=== PATIENT | male | born 1960 | race African-American/Black ===

== ENCOUNTER 2016-12-18 09:40 | Observation (INO) | payer MEDICARE, OTHER ==
[2016-12-18] VITALS (9 sets, daily range): BP systolic 145–189; BP diastolic 77–119; PULSE 75–90; RESP 16–17; TEMP 98; O2SAT 93–97
[~2016-12-18] VITALS: Ht 182.9 cm; Wt 120.0 kg
[~2016-12-18 09:40] MED LIST: KETO10 PO
[2016-12-18] MEDS ORDERED: HYDR-3583 PO (11:09)
[2016-12-18] MEDS ORDERED: IBUP800T23 PO (11:09)
--- NOTE | 2016-12-18 11:12 | PD ---
HPI Chief Complaint: Chest Pain Time Seen by Provider: 11:11 Travel History International Travel<30 days: No Contact w/Intl Traveler<30days: No Traveled to known affect area: No History of Present Illness HPI 56-year-old Afro-Macedonian male with history of hypertension and is gone treated for the past year, presents the emergency department with episodic complaints of chest pressure, sweating, and weakness which occur at various times, not necessarily related to exertion which is more prominent and frequent over the past month. Patient had a primary care physician up to about a year ago and was on an antihypertensive medication not recall the name of but said it "didn' t work". Patient states he was a smoker up until several days ago. Patient currently takes no medication but has taken aspirin a couple of times in the past week. Patient states an episode this morning which lasted probably 40 minutes, and then resolved. He states he was going to put a Tag on a car, when it started. He then had some symptoms when he arrived for approximately 20 minutes. Currently patient states he's symptom-free. Patient states he had 2 episodes today which is why he came in. He has no known drug allergies. PFSH Past Medical History Cerebrovascular Accident: No Diabetes: No Hypertension: Yes Myocardial Infarction: No Past Surgical History Tonsillectomy: Yes Other Surgery: Yes (hernia repair) Social History Alcohol Use: Yes (1-2X WEEK) Tobacco Use: Yes Substance Use: No Allergies-Medications (Allergen,Severity, Reaction): Coded Allergies: No Known Allergies (Unverified , 10/10/14) Reported Meds & Prescriptions Reported Meds & Active Scripts Active Reported Hydrocodone-Acetaminophen 10-325 mg Tab 1 Tab PO Q4H PRN Ibuprofen 800 Mg Tab 800 Mg PO Q6HR PRN Review of Systems Except as stated in HPI: all other systems reviewed are Neg General / Constitutional: No: Fever Eyes: No: Visual changes HENT: No: Headaches Cardiovascular: Positive: Chest Pain or Discomfort (intermittent.), Diaphoresis , Dyspnea on exertion (see history of present illness), No: Palpitations (see history of present illness), Irregular Rhythm, Tachycardia, Syncope, Varicosities, Edema, Cyanosis, Varicosities, Phlebitis, Claudication Respiratory: Positive: Shortness of Breath, No: Cough, Wheezing, Sneezing Gastrointestinal: No: Nausea, Vomiting, Diarrhea, Abdominal Pain Genitourinary: No: Dysuria Musculoskeletal: No: Pain Skin: No Rash Neurologic: No: Weakness Psychiatric: No: Depression Endocrine: No: Polydipsia Hematologic/Lymphatic: No: Easy Bruising Physical Exam Narrative GENERAL: Patient appears mildly anxious but in no acute distress SKIN: Warm and dry. Normal color. Normal turgor. HEAD: Atraumatic. Normocephalic. EYES: Pupils equal and round. No scleral icterus. No injection or drainage. ENT: No nasal bleeding or discharge. Mucous membranes pink and moist. NECK: Trachea midline. Supple and nontender. CARDIOVASCULAR: Regular rate and rhythm. No murmurs gallops or rubs. RESPIRATORY: No accessory muscle use. Clear to auscultation. Breath sounds equal bilaterally. GASTROINTESTINAL: Abdomen soft, non-tender, nondistended. Hepatic and splenic margins not palpable. MUSCULOSKELETAL: Extremities without clubbing, cyanosis, or edema. No obvious deformities. NEUROLOGICAL: Awake and alert. No obvious cranial nerve deficits. Motor grossly within normal limits. Five out of 5 muscle strength in the arms and legs. Normal speech. PSYCHIATRIC: Appropriate mood and affect; insight and judgment normal. Data Data Last Documented VS Vital Signs Date Time Temp Pulse Resp B/P (MAP) Pulse Ox O2 Delivery O2 Flow Rate FiO2 12/18/16 11:45 145/88 (107) 12/18/16 11:09 76 17 96 Room Air 12/18/16 09:46 98.0 Orders Orders Electrocardiogram (12/18/16 ) Electrocardiogram (12/18/16 11:21) B-Type Natriuretic Peptide (12/18/16 11:21) Ckmb (Isoenzyme) Profile (12/18/16 11:21) Complete Blood Count With Diff (12/18/16 11:21) Comprehensive Metabolic Panel (12/18/16 11:21) Magnesium (Mg) (12/18/16 11:21) Prothrombin Time / Inr (Pt) (12/18/16 11:21) Act Partial Throm Time (Ptt) (12/18/16 11:21) Troponin I (12/18/16 11:21) Lipase (12/18/16 11:21) Chest, Single Ap (12/18/16 11:21) Ecg Monitoring (12/18/16 11:21) Bilateral Bp Monitoring (12/18/16 11:21) Iv Access Insert/Monitor (12/18/16 11:21) Oximetry (12/18/16 11:21) Oxygen Administration (12/18/16 11:21) Aspirin Chew (Aspirin Chew) (12/18/16 11:30) Sodium Chloride 0.9% Flush (Ns Flush) (12/18/16 11:30) Metoprolol Tartrate Inj (Lopressor Inj) (12/18/16 11:30) Sodium Chlorid 0.9% 500 Ml Inj (Ns 500 M (12/18/16 11:30) CKMB (12/18/16 11:20) CKMB% (12/18/16 11:20) Labs Laboratory Tests Test 12/18/16 11:20 White Blood Count 4.3 TH/MM3 Red Blood Count 5.52 MIL/MM3 Hemoglobin 15.7 GM/DL Hematocrit 47.5 % Mean Corpuscular Volume 86.1 FL Mean Corpuscular Hemoglobin 28.5 PG Mean Corpuscular Hemoglobin Concent 33.1 % Red Cell Distribution Width 13.9 % Platelet Count 152 TH/MM3 Mean Platelet Volume 8.5 FL Neutrophils (%) (Auto) 41.1 % Lymphocytes (%) (Auto) 37.7 % Monocytes (%) (Auto) 16.3 % Eosinophils (%) (Auto) 4.3 % Basophils (%) (Auto) 0.6 % Neutrophils # (Auto) 1.8 TH/MM3 Lymphocytes # (Auto) 1.6 TH/MM3 Monocytes # (Auto) 0.7 TH/MM3 Eosinophils # (Auto) 0.2 TH/MM3 Basophils # (Auto) 0.0 TH/MM3 CBC Comment DIFF FINAL Differential Comment Prothrombin Time 10.5 SEC Prothromb Time International Ratio 1.0 RATIO Activated Partial Thromboplast Time 27.6 SEC Blood Urea Nitrogen 7 MG/DL Creatinine 0.93 MG/DL Random Glucose 91 MG/DL Total Protein 7.5 GM/DL Albumin 3.8 GM/DL Calcium Level 8.2 MG/DL Magnesium Level 2.1 MG/DL Alkaline Phosphatase 71 U/L Aspartate Amino Transf (AST/SGOT) 33 U/L Alanine Aminotransferase (ALT/SGPT) 40 U/L Total Bilirubin 0.6 MG/DL Sodium Level 136 MEQ/L Potassium Level 4.0 MEQ/L Chloride Level 103 MEQ/L Carbon Dioxide Level 27.8 MEQ/L Anion Gap 5 MEQ/L Estimat Glomerular Filtration Rate 102 ML/MIN Total Creatine Kinase 372 U/L Creatine Kinase MB 3.6 NG/ML Creatine Kinase MB % 1.0 % Troponin I LESS THAN 0.02 NG/ML B-Type Natriuretic Peptide LESS THAN 2 PG/ML Lipase 132 U/L MDM Medical Decision Making Medical Screen Exam Complete: Yes Emergency Medical Condition: Yes Medical Record Reviewed: Yes Differential Diagnosis Unstable angina. Cardiac syndrome. Esophageal reflux. Dehydration. Electrolyte imbalance. Hypertension Narrative Course Patient is a medically stable at time of exam. EKG shows normal sinus rhythm without ST changes. Labs ordered including CBC, CMP, proBNP, magnesium, PT PTT and INR, and cardiac panel. Urinalysis is ordered as well. Chest x-ray is ordered. Patient is given 324 mg chewable aspirin by mouth. Patient is given 5 mg metoprolol 3 per protocol. CBC, CMP, proBNP, magnesium, PT/PTT and INR, and original troponin is negative. Patient agrees to be admitted to the chest pain center for further evaluation and treatment. Diagnosis Primary Impression: Chest pain at rest Additional Impression: Hypertension Qualified Codes: I10 - Essential (primary) hypertension Admitting Information Admitting Physician Requests: Observation Condition: Stable Bradley Valencia Dec 18, 2016 11:12
[2016-12-18] MEDS ORDERED: ASPIRIN 81 MG CHEW TAB PO ONE (11:30)
[2016-12-18] MEDS ORDERED: SODIUM CHLORID 0.9% 500 ML INJ 500 ML IV ONE (11:30)
[2016-12-18] MEDS ORDERED: SODIUM CHLORIDE 0.9% FLUSH 10 ML FLUSH IVF PRN (11:30)
[2016-12-18] MEDS: METOPROLOL TARTRATE 5 MG/5 ML VIAL IVS SCH ×3 (11:36→11:47)
[2016-12-18 11:52] LABS: AUTOMATED NEUTROPHIL # 1.8 TH/MM3 (1.8-7.7); BASOPHIL % 0.6 % (0.0-2.0); EOSINOPHIL # 0.2 TH/MM3 (0-0.4); EOSINOPHIL % 4.3 % (0.0-4.0); HEMATOCRIT 47.5 % (39.0-51.0); HEMO FLAGS DIFF FINAL; LYMPH % 37.7 % (9.0-44.0); LYMPHOCYTE # 1.6 TH/MM3 (1.0-4.8); MEAN CELL VOLUME 86.1 FL (80.0-100.0); MEAN CORPUSCULAR HEMOGLOBIN 28.5 PG (27.0-34.0); MEAN CORPUSCULAR HGB CONC 33.1 % (32.0-36.0); MONO % 16.3 % (0.0-8.0); NEUT % 41.1 % (16.0-70.0); PLATELET COUNT 152 TH/MM3 (150-450); RED BLOOD COUNT 5.52 MIL/MM3 (4.50-5.90); RED CELL DISTRIBUTION WIDTH 13.9 % (11.6-17.2); WHITE BLOOD COUNT 4.3 TH/MM3 (4.0-11.0)
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
[2016-12-18 12:05] LABS: APTT (PATIENT) 27.6 SEC (24.3-30.1); PROTHROMBIN TIME - PATIENT 10.5 SEC (9.8-11.6)
[2016-12-18 12:18] LABS: ALKALINE PHOSPHATASE 71 U/L (45-117); CREATINE KINASE 372 U/L (39-308); TOTAL BILIRUBIN ADULT 0.6 MG/DL (0.2-1.0)
[2016-12-18 12:20] LABS: ALT (GPT) 40 U/L (12-78); ANION GAP 5 MEQ/L (5-15); AST (GOT) 33 U/L (15-37); BICARBONATE 27.8 MEQ/L (21.0-32.0); BLOOD UREA NITROGEN 7 MG/DL (7-18); CHLORIDE 103 MEQ/L (98-107); GLOMERULAR FILTRATION RATE 102 ML/MIN (>89); MAGNESIUM 2.1 MG/DL (1.5-2.5); SODIUM (NA) 136 MEQ/L (136-145)
[2016-12-18 12:30] LABS: CKMB 3.6 NG/ML (0.5-3.6)
[2016-12-18] MEDS ORDERED: NITROGLYCERIN 0.4 MG SL 25 TABS/BTL SL PRN (14:00)
[2016-12-18] MEDS ORDERED: ONDANSETRON HCL 4 MG/2 ML VIAL IV PUSH PRN (14:00)
[2016-12-18] MEDS ORDERED: ACETAMINOPHEN 500 MG CPLT PO PRN (14:00)
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
[2016-12-18] MEDS ORDERED: amLODIPine BESYLATE 5 MG TAB PO SCH (15:30)
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
[2016-12-18 15:47] LABS: CREATINE KINASE 333 U/L (39-308)
[2016-12-18 15:58] LABS: CKMB 3.8 NG/ML (0.5-3.6)
[2016-12-18 18:40] LABS: CREATINE KINASE 308 U/L (39-308)
[2016-12-18] MEDS ORDERED: AMLO5TAB2 PO (18:47)
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
[2016-12-18 18:52] LABS: CKMB 3.4 NG/ML (0.5-3.6)
[2016-12-18] MEDS ORDERED: SODIUM CHLORIDE 0.9% FLUSH 10 ML FLUSH IV FLUSH SCH (21:00)
--- NOTE | 2016-12-18 21:29 | EKG ---
Date Performed: 12/18/2016 Time Performed: 10:16:49 PTAGE: 56 years EKG: Sinus rhythm NORMAL ECG NO PREVIOUS TRACING DOCTOR: Lauren Gomes Interpretating Date/Time 12/18/2016 21:29:19
[2016-12-19] MEDS ORDERED: ASPIRIN 325 MG TAB PO SCH (09:00)
--- NOTE | 2016-12-19 18:20 | EKG ---
Date Performed: 12/18/2016 Time Performed: 18:59:46 PTAGE: 56 years EKG: Sinus rhythm NONSPECIFIC T-WAVE ABNORMALITY BORDERLINE ECG NO PREVIOUS TRACING DOCTOR: Yvan Cummings Interpretating Date/Time 12/19/2016 18:19:17
--- NOTE | 2016-12-19 18:25 | EKG ---
Date Performed: 12/18/2016 Time Performed: 15:35:44 PTAGE: 56 years EKG: Sinus rhythm NORMAL ECG PREVIOUS TRACING : 12/18/2016 10.16 Since previous tracing, no significant change noted DOCTOR: Yvan Cummings Interpretating Date/Time 12/19/2016 18:23:16
== END 2016-12-18 19:43 | disposition home or self-care (01) ==
LOC: NEPE 09:40 → NEDA 12:50 → NEPHCDU 14:42
PROVIDERS: ADMIT Internal Medicine Interventional Cardiology; ATTEND Internal Medicine Interventional Cardiology
DX: R07.89 Other chest pain (principal); R06.02 Shortness of breath; I10 Essential (primary) hypertension; R51 Headache; R53.1 Weakness; Z87.891 Personal history of nicotine dependence; Z79.899 Other long term (current) drug therapy
CPT/HCPCS: 71010; 80053; 82550; 82552; 83690; 83735; 83880; 84484; 85025; 85610; 85730; 93005; 96361; 96374; 99285; G0378; J7040